=== PATIENT | female | born 1965 | race Caucasian/White ===

== ENCOUNTER 2016-12-09 12:44 | Emergency (ER) | payer OTHER ==
[2016-12-09 12:44] VITALS: O2SAT 99
[2016-12-09 12:49] VITALS: RESP 20
[2016-12-09 13:21] VITALS: BP 117/71; PULSE 74; TEMP 96.6
== END 2016-12-09 13:29 | disposition home or self-care (01) | DRG 605 ==
LOC: ED 12:44
DX: S61.217A Laceration without foreign body of left little finger without damage to nail, initial encounter (principal); W27.8XXA Contact with other nonpowered hand tool, initial encounter
CPT/HCPCS: 99283